=== PATIENT | male | born 1950 | race Two or more races ===

== ENCOUNTER 2021-02-06 10:09 | Emergency (ER) | payer MEDICAID, SELFPAY ==
[2021-02-06 10:15] VITALS: BP 154/94; PULSE 74; RESP 16; O2SAT 97; BMI 25.7
--- NOTE | 2021-02-06 10:56 | ED.MALEGU ---
HPI - Male Genitourinary General Chief complaint: Urogenital-Male Stated complaint: pt has cath Time Seen by Provider: 02/06/21 10:33 Source: patient and family Mode of arrival: ambulatory Limitations: language barrier History of Present Illness HPI Narrative: 70-year-old male with past medical history of stroke, urinary retention with chronic indwelling Márquez, hypertension, hyperlipidemia who presents to the emergency department with reports of need for Márquez catheter change. Patient just relocated from [place] approximately 1 week ago. The Márquez cath currently in place with face approximately 5 weeks ago. Family is worried about the appearance of the urine. Patient himself has no complaints. Denies fevers, chills, chest pain, shortness of breath, abdominal pain, pain around the penis or dysuria. They are currently trying to get patient insurance and set up primary care. They are requesting Márquez changed and instructions on how to care for this properly at home. Review of Systems Review of Systems: Constitutional : No Weight loss, No Fever, No Chills, No Night Sweats, No Fatigue, No Malaise ENT/Mouth : No Hearing loss, No Ear Pain, No Nasal Congestion, No Sinus Pain, No Hoarseness, No sore throat, No Rhinorrhea, No Swallowing Difficulty Eyes: No Eye Pain, No Swelling, No Redness, No Foreign Body, No Discharge, No Vision Changes Cardiovascular : No Chest Pain, No SOB, No Dyspnea on Exertion, No Orthopnea, No Edema, No Palpitations Respiratory : No Cough, No Sputum, No Wheezing, No Smoke Exposure, No Dyspnea Gastrointestinal : No Nausea, No Vomiting, No Diarrhea, No Constipation, No abdominal Pain, No Hematochezia, No Melena Genitourinary : no irregular bleeding, No Dysuria, No Hematuria, No Flank Pain, No Urinary Flow Changes Musculoskeletal : No joint pain, No Myalgias, No Joint Swelling Skin : No Skin Lesions, No rash Neuro : No Weakness, No Numbness, No Paresthesias, No Loss of Consciousness, No Dizziness, No Headache Psych : No Anxiety/Panic, No Depression, No SI/HI/AH/VH, No Social Issues, Heme/Lymph: No Bruising, No Bleeding,No Lymphadenopathy Endocrine : No Polyuria, No Polydipsia, No Temperature Intolerance PMFSH Past Medical History Attestation statement: The following information was validated with the patient. Source: old records reviewed and obtained from family Medical History (Updated 02/06/21 @ 11:06 by DOMENICA Chamorro) Hypertension Myocardial infarct Seizure Social History Social History Advance Directives: No Advance Directives Information Provided: No Physical Exam Vital Signs: Vital Signs: Last Vital Signs Pulse 74 02/06/21 10:15 Resp 16 02/06/21 10:15 BP 154/94 H 02/06/21 10:15 Pulse Ox 97 02/06/21 10:15 Body Mass Index 25.7 vital signs have been reviewed as normal and appeared to be correct. Blood pressure normal. Heart rate normal. Respiration rate normal. Temperature normal. Oxygen saturation normal. Appearance: Alert. Oriented X3. No acute distress. Head: Normal external exam. Normocephalic. Atraumatic. No Rodriguez signs noted. No raccoon eyes noted Eyes: Conjunctiva and sclera normal. ENT: EAC normal. Moist mucous membranes. No drooling noted. No muffled voice noted. Neck: Normal inspection. Neck supple. FROM. No meningeal signs. CVS: Pulses normal throughout. Respiratory: No respiratory distress. Painless inspiration. No accessory muscle usage noted Abdomen: No visible injury noted. Abdomen soft, nd/nt. Márquez cath in place, urine is yellow and clear however significant debris in the catheter tubing and bag noted. Back: Full range of motion noted. Skin: Skin warm and dry. Normal skin color. Normal skin turgor. Extremities: No lower extremity edema. Extremities exhibit normal range of motion. Neuro: Oriented X 3. No motor deficit change from baseline. No sensory deficit change from baseline. MDM - Male Genitourinary MDM Narrative Medical decision making narrative: Patient's vital signs are stable and he is afebrile. Patient presenting to the emergency department requesting urinary catheter change. It has been approximately 5 weeks since this was placed patient is relocated from [place] does not have primary care physician at this time. Patient has no secondary signs or symptoms of infection is well appearing and in no acute distress. Will have nursing staff change full Márquez catheter. Will refer to outpatient PCP and Urology do not feel need to send urine sample given absence of infectious symptoms. Will discharge home with close outpatient follow-up and strict return precautions. Medical Records Attestation: I reviewed the patient's medical records. Lab Data Attestation: I reviewed the patient's lab results. Discharge Plan Discharge Clinical Impression: Retention of urine, unspecified Patient Disposition: Home, Self-Care Instructions: Márquez Catheter Placement and Care (ED) Additional Instructions: You were seen in the ED today for márquez catheter replacement. Is important that you establish outpatient primary care as well as urology care. These will be given to you as referrals please call to make appointments. Return to the ED if you are having fever, chills, abdominal pain or other concerning signs or symptoms. Referrals: Aroldo Cunningham MD [Physician] - 1 week Parth Garza MD [Physician] - 1 week Interventions: ED Discharge Assessment Last Done: 02/06/21 12:06 Discharge Date/Time: 02/06/21 12:08 Print Language: Cambodian
--- NOTE | 2021-02-06 12:04 | PC.NURSE ---
A approx 1320 márquez cath was changed to 18 fr with new drainage system with semiconductor processing technician. leg bag applied after clear yellow urine had drained. pt denies any symptoms. family educated on proper márquez catheter care.
== END 2021-02-06 12:08 | disposition home or self-care (01) ==
PROVIDERS: Emergency Provider Emergency Medicine
DX: R33.9 Retention of urine, unspecified (principal); Z79.899 Other long term (current) drug therapy
CPT/HCPCS: 99283

== ENCOUNTER 2021-03-14 21:49 | Emergency (ER) | payer MEDICAID, SELFPAY ==
[2021-03-14 23:16] VITALS: BP 140/77; PULSE 99; RESP 18; TEMP 36.9; O2SAT 97; BMI 25.0
--- NOTE | 2021-03-15 00:51 | PC.NURSE ---
PT URINE COLLECTION BAG FROM FOX RIPPED WHILE IN WAITING AREA. REPLACED BAG IN TRIAGE. RN AWARE
[2021-03-15 03:08] LABS: Basophils Absolute Auto 0.1 X10*3/uL (0.0-0.2); Basophils Percent Auto 0.4 % (0-2); Eosinophils Absolute Auto 0.1 X10*3/uL (0.0-0.4); Eosinophils Percent Auto 0.4 % (0-4); Hematocrit 42.6 % (42-52); Hemoglobin 14.7 g/dl (14.0-18.0); Imm Gran Abs Auto 0.04 X10*3/uL (0.00-0.03); Imm Gran Pct Auto 0.3 % (0.0-0.4); Lymphocytes Absolute Auto 2.1 X10*3/uL (1.2-4.9); Lymphocytes Percent Auto 15.9 % (20-40); MANUAL DIFF FLAG NO; Mean Corpuscular HGB Conc 34.5 g/dl (31.0-36.0); Mean Corpuscular Hemoglobin 30.4 pg (27.0-33.0); Mean Corpuscular Volume 88.2 fL (80-98); Mean Platelet Volume 9.4 fL (9.4-12.4); Monocytes Percent Auto 7.7 % (2-11); Neutrophils Absolute Auto 10.1 X10*3/uL (2.0-8.3); Neutrophils Percent Auto 75.3 % (45-73); Platelet Count 345 X10*3/uL (160-400); Red Blood Count 4.83 X10*6/uL (4.60-5.80); Red Cell Distribution Width 12.5 % (11.0-16.0); White Blood Count 13.4 X10*3/uL (4.8-10.8)
[2021-03-15 03:12] LABS: Glucose Urine UA NEG (NEG); Leukocyte Esterase Urine 3+ (NEG); Nitrite Urine NEG (NEG); PH 6.5 (5.0-8.0); UACC Culture Trigger YES; Urine Blood 1+ (NEG); Urine Ketones NEG (NEG); Urine Protein 1+ MG/DL (NEG-TRACE)
[2021-03-15 03:16] LABS: Appearance Urine HAZY; Color Urine YELLOW
[2021-03-15 03:19] LABS: Bacteria Urine 4+ /LPF; Squamous Epithelial Cell Urine 1+ /LPF; WBC Urine TNTC /HPF (0-4)
[2021-03-15 03:25] VITALS: BP 133/75; PULSE 76; TEMP 37.4; O2SAT 97
[2021-03-15 03:40] LABS: Alanine Aminotransferase 19 U/L (0-40); Albumin Level 4.6 g/dL (3.5-5.0); Alkaline Phosphatase 105 U/L (39-117); Anion Gap 14 (12-20); Aspartate Amino Transferase 16 U/L (5-37); Bilirubin Total 0.2 mg/dL (0.0-1.0); Blood Urea Nitrogen 12 mg/dL (9-16); Calcium 9.9 mg/dL (8.4-10.2); Carbon Dioxide 26 mmol/L (22-29); Chloride 102 mmol/L (96-108); Creatinine Clr Calc Pharmacy 71.3; Estimated Glomerular Filt Rate > 60; Glucose Random 123 mg/dL (60-115); Potassium 3.2 mmol/L (3.3-5.1); Sodium 139 mmol/L (135-145); Total Protein 7.6 g/dL (6.5-8.0)
--- NOTE | 2021-03-15 03:49 | ED_ITS ---
HPI - Male Genitourinary General Chief complaint: Urogenital-Male Stated complaint: UTI? Time Seen by Provider: 03/15/21 03:24 Source: patient, family (Son) and relocation director Mode of arrival: ambulatory History of Present Illness HPI Narrative: 70-year-old male who presents with pain and burning at his catheter with sitting it is noted decrease in urination through the Dumont catheter which he has had in place for over 5 weeks. Patient denies any associated fever, chills, nausea, vomiting, diarrhea. Related Data Previous Rx's Medication Instructions Recorded cefdinir 300 mg capsule 300 mg PO Q12H 7 Days #14 cap 03/15/21 Allergies Allergy/AdvReac Type Severity Reaction Status Date / Time No Known Allergies Allergy Verified 03/14/21 23:16 Review of Systems Review of Systems: Pertinent positives and negatives as stated in HPI 10 point review of systems is otherwise negative. PMFSH Past Medical History Source: nursing notes reviewed Medical History Hypertension Myocardial infarct Seizure Social History Social History Alcohol intake: unknown Patient Tobacco Use Status: Tobacco use Unknown Use of substances other than those prescribed or required for medical reasons: Unknown Advance Directives: No Advance Directives Information Provided: No Physical Exam Vital Signs: Vital Signs: Last Vital Signs Temp 99.3 F 03/15/21 03:25 Pulse 76 03/15/21 03:25 Resp 18 03/14/21 23:16 BP 133/75 03/15/21 03:25 Pulse Ox 97 03/15/21 03:25 Body Mass Index 25.0 VITAL SIGNS: Reviewed. GENERAL: Well developed, well nourished, in no acute distress. HEAD: Normocephalic/atraumatic EYES: PERRLA, EOMI OROPHARYNX: no oral lesions noted, posterior pharynx clear LUNGS: Normal breath sounds. No adventitious sounds or accessory muscle use. SpO2<97> CARDIOVASCULAR: Regular rate and rhythm without noted murmurs, no JVD or lower extremity edema. ABDOMEN: Soft, mild discomfort at suprapubic, non-distended with bowel sounds. : Bladder scan demonstrates 400 cc within the bladder SKIN: Inspection of the skin reveals no rashes NEUROLOGIC: Alert and oriented x 4. Strength and sensation to light touch were grossly intact x 4. Course Course Course Narrative: 70-year-old male with history and clinical presentation consistent with likely malpositioned catheter as well as the possibility of UTI. Review of all investigations consistent with UTI, patient will have Dumont catheter replaced, and will receive initial antibiotics here in the emergency room and afterwards will be discharged with remaining course of antibiotics and instructions to follow-up with his primary care provider. MDM - Male Genitourinary Lab Data Result diagrams: 03/15/21 03:00 03/15/21 03:00 Labs: Lab Results 03/15/21 03/15/21 03/15/21 Range/Units 03:00 03:00 03:00 WBC 13.4 H (4.8-10.8) X10*3/uL RBC 4.83 (4.60-5.80) X10*6/uL Hgb 14.7 (14.0-18.0) g/dl Hct 42.6 (42-52) % MCV 88.2 (80-98) fL MCH 30.4 (27.0-33.0) pg MCHC 34.5 (31.0-36.0) g/dl RDW 12.5 (11.0-16.0) % Plt Count 345 (160-400) X10*3/uL MPV 9.4 (9.4-12.4) fL Immature Gran % (Auto) 0.3 (0.0-0.4) % Neut % (Auto) 75.3 H (45-73) % Lymph % (Auto) 15.9 L (20-40) % [place] % (Auto) 7.7 (2-11) % Eos % (Auto) 0.4 (0-4) % Baso % (Auto) 0.4 (0-2) % Lymph # (Auto) 2.1 (1.2-4.9) X10*3/uL [place] # (Auto) 1.0 (0.1-1.2) X10*3/uL Eos # (Auto) 0.1 (0.0-0.4) X10*3/uL Baso # (Auto) 0.1 (0.0-0.2) X10*3/uL Abs Immat Gran (auto) 0.04 H (0.00-0.03) X10*3/uL Absolute Neuts (auto) 10.1 H (2.0-8.3) X10*3/uL Absolute Nucleated RBC 0.000 (0.0-0.012) X10*3/uL Nucleated RBC % (auto) 0.0 (0.0-0.2) /100WBC Sodium 139 (135-145) mmol/L Potassium 3.2 L (3.3-5.1) mmol/L Chloride 102 (96-108) mmol/L Carbon Dioxide 26 (22-29) mmol/L Anion Gap 14 (12-20) BUN 12 (9-16) mg/dL Creatinine 0.85 (0.5-1.4) mg/dL Estim Creat Clear Calc 71.3 Estimated GFR > 60 Random Glucose 123 H (60-115) mg/dL Calcium 9.9 (8.4-10.2) mg/dL Total Bilirubin 0.2 (0.0-1.0) mg/dL AST 16 (5-37) U/L ALT 19 (0-40) U/L Alkaline Phosphatase 105 (39-117) U/L Total Protein 7.6 (6.5-8.0) g/dL Albumin 4.6 (3.5-5.0) g/dL Urine Color YELLOW Urine Appearance HAZY Urine pH 6.5 (5.0-8.0) Ur Specific [place] 1.020 (1.005-1.025) Urine Protein 1+ H (NEG-TRACE) MG/DL Urine Glucose (UA) NEG (NEG) MG/DL Urine Ketones NEG (NEG) MG/DL Urine Blood 1+ H (NEG) Urine Nitrite NEG (NEG) Ur Leukocyte Esterase 3+ H (NEG) Urine RBC 5-9 H (0) /HPF Urine WBC TNTC H (0-4) /HPF Ur Squamous Epith Cells 1+ /LPF Urine Bacteria 4+ /LPF Discharge Plan Discharge Clinical Impression: Urinary tract infection, Malfunction of Dumont catheter Patient Disposition: Home, Self-Care Instructions: Urinary Tract Infection in Men (ED), Dumont Catheter Placement and Care (ED), Dysuria (ED) Additional Instructions: 1. Reanude todos los medicamentos caseros seg?n lo prescrito. 2. Complete todo el ciclo de antibi?ticos que le hayan recetado. 3. Carmelo un seguimiento con bardales proveedor de atenci?n primaria para sarina reevaluaci?n y un tratamiento ambulatorio adicional en los pr?ximos 1-2 d?as. Regrese a la heike de emergencias si adele s?ntomas empeoran de manera aguda. Prescriptions: New cefdinir 300 mg capsule 300 mg PO Q12H 7 Days Qty: 14 RF: 0 Referrals: Physician,None [Primary Care Provider] - 2 days Print Language: Thai
[2021-03-15] MEDS: cephALEXin 500 MG CAPSULE PO (04:25)
== END 2021-03-15 04:25 | disposition home or self-care (01) ==
PROVIDERS: Emergency Provider Student in an Organized Health Care Education/Training Program
DX: T83.511A Infection and inflammatory reaction due to indwelling urethral catheter, initial encounter (principal); N39.0 Urinary tract infection, site not specified; T83.028A Displacement of other urinary catheter, initial encounter
CPT/HCPCS: 36415; 51702; 80053; 81001; 85025; 87086; 87088; 87186; 99284; 99285